=== PATIENT | male | born 1985 | race Caucasian/White ===

== ENCOUNTER → 2020-08-09 | Outpatient (CLI) | payer OTHER ==
--- NOTE | 2020-08-09 17:13 | CONS ---
CONSULTATION CONSULTATION NOTE: REASON FOR CONSULTATION: Insomnia. This is a 35-year-old male patient coming in. His main complaint is difficulties in initiating sleep. This patient claims that he has been having insomnia for many years. His main issue is sleep onset insomnia. Once he goes to sleep, he is able to maintain sleep and sometimes he is able to achieve up to 6-8 hours of sleep. 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 He takes certain jobs with friends. Whenever he works and on work day he has to wake up early. Otherwise, he can stay up to 2 to 3 a.m. in the morning and get up around 8 a.m. During regular days where he has to work, the patient tries to go to bed early at around 8 pm and this has become a problem as the patient is unable to initiate sleep and he tosses and turns and he struggles to go into sleep. He has been having irregular sleep schedule for years. His to to bed time ranges between 8 pm and 3 am. He is currently living with a girlfriend who works midnights and as such he is alone in the house. He has snoring. No witnessed apneas. Denies waking up gasping for air or choking sensation. No restless lower extremities. No sleepwalking or sleeptalking. No anxiety or panic attacks. No nighttime heartburn, shortness of breath, chest pain. His current [place] score is at 4. He is known to have seizure disorder. The patient does not drive a car. His weight has been stable over the past year and there is no recent weight gain or weight loss. He has no history of substance abuse. No history of alcoholism. No history of any recent head trauma. He does not fall asleep while talking to other individuals. No sleep paralysis. No hallucinations. No cataplexy. PAST MEDICAL HISTORY: History of seizure disorder, acid reflux, migraines, restless legs syndrome and hypertension. PAST SURGICAL HISTORY: Previous history of brain surgery for cyst. DRUG ALLERGIES: Not known. OUTPATIENT MEDICATION: Includes Keppra 500 mg twice a day, omeprazole 20 mg p.o. q. day, Singulair 10 mg p.o. daily. Nortriptyline 100 mg p.o. q. day, Requip 0.5 mg at bedtime and lisinopril 10 mg p.o. daily, Motrin on an as-needed basis. SOCIAL HISTORY: The patient is a smoker. He smokes 1 to 1/2 pack of cigarettes a day. No history of alcoholism. No history of IV drugs. FAMILY HISTORY: Negative and noncontributory to current presentation. REVIEW OF SYSTEMS: A 14-point review of system was done and positive findings are mentioned in above history of present illness. PHYSICAL EXAMINATION: BP is 149/89, pulse is 100, respirations 16, temperature 97.9. Height is 5, 11, weight is 263 and neck size 16.5 inches, saturation 99% on room air. GENERAL APPEARANCE: Calm, comfortable. HEAD: Atraumatic, normocephalic. NECK: Supple. No JVD. No goiter neck masses. LUNGS: Clear to auscultation. HEART: Heart sounds are regular rate and rhythm, normal S1, S2. ABDOMEN: Soft, nontender, no organomegaly. EXTREMITIES: No edema, no cyanosis, or clubbing. NEUROLOGIC: The patient is awake and alert, there is no focal neurological deficit. IMPRESSION: 1. Sleep onset insomnia, most likely related to abnormal sleep schedule and obvious issues with the patient's sleep hygiene. The patient has a primary sleep disorder. No clear indication for an underlying obstructive sleep apnea. 2. Seizure disorder. 3. History of RLS maintained well with Requip. 4. Hypertension. PLAN: This patient will need to regulate his sleep schedule more effectively. His condition is problematic because on a day-to-day basis he has missed aligned his body clock and sleep schedule and this has obviously resulted in a poor sleep quality to the point where the patient is unable to fall asleep. Over an extended period of time, this type of malalignment can be linked to chronic health problems such as diabetes, depression, bipolar disease, and other psychiatric disorder. This patient has a component of delayed sleep phase syndrome where he is trying to go to bed extremely late and wake up late. However, at other times he is trying to move into an earlier time and this has become difficult and he has obviously led into some degree of sleep onset insomnia. I gave the patient tips for resetting his sleep schedule. I asked him to adjust his bedtime and get up every day at around 6 o'clock in the morning with an alarm. He needs to be patient about this. If he is aiming to go to bed earlier, he can gradually scale his time back where he can go to bed around 11 p.m. and wake up at 6 o'clock in the morning. He does not have to take any naps even if he is feeling tired. He was advised not to sleep in and he needs to get up at the same time each day as mentioned. Being consistent is a potts for a functioning sleep schedule. He will set his alarm to wake up at 7 am in the morning. I asked him to be strict about sticking to his sleep schedule. He needs to avoid exposure to light before sleep. He needs to avoid eating or exercising too close to the bedtime. I also asked him to listen to some music tonight that would set the mood and creating a relaxing bedtime during sleep. No need for any drugs or medication treatment at this point in time. He will try these changes and will let me know if he has been successful and regulating his sleep time. Will continue to follow. KIMBERLEE / KAREN: [id number] /
== END | disposition home or self-care (01) ==
LOC: SLEEP 13:25
PROVIDERS: ATTEND Internal Medicine Critical Care Medicine
DX: G47.00 Insomnia, unspecified (principal); G40.909 Epilepsy, unspecified, not intractable, without status epilepticus; I10 Essential (primary) hypertension; Z87.39 Personal history of other diseases of the musculoskeletal system and connective tissue; Z79.899 Other long term (current) drug therapy; Z99.89 Dependence on other enabling machines and devices
CPT/HCPCS: 99201